=== PATIENT | male | born 1995 | race Caucasian/White ===

== ENCOUNTER 2023-08-13 17:00 | Emergency (ER) | payer OTHER ==
[~2023-08-13] VITALS: Ht 180.3 cm; Wt 86.4 kg
[2023-08-13] MEDS ORDERED: LIDOCAINE 5% (LIDODERM) PATCH TD ONE (20:25)
[2023-08-13] MEDS ORDERED: KETOROLAC 30 MG/ML 1ML VIAL IM ONE (20:25)
[2023-08-13] MEDS ORDERED: diazePAM 10 MG TAB PO ONE (20:25)
[2023-08-13] MEDS ORDERED: NAPR-837 PO (21:13)
[2023-08-13] MEDS ORDERED: ASPE4PAD TOP (21:13)
[2023-08-13] MEDS ORDERED: METH-1165 PO (21:13)
[2023-08-13 21:23] VITALS: BP 142/69; TEMP 97.7; O2SAT 98
== END 2023-08-13 21:24 | disposition home or self-care (01) ==
LOC: M ED 17:00
DX: M54.17 Radiculopathy, lumbosacral region (principal); M54.50 Low back pain, unspecified; M54.32 Sciatica, left side; Z91.02 Food additives allergy status; Z91.048 Other nonmedicinal substance allergy status; Z79.891 Long term (current) use of opiate analgesic; Z79.899 Other long term (current) drug therapy
CPT/HCPCS: 72110; 96372; 99283; J1885